=== PATIENT | female | born 1980 | race Caucasian/White ===

== ENCOUNTER 2019-04-23 14:38 | Emergency (ER) | payer SELFPAY ==
[~2019-04-23] VITALS: Ht 165.1 cm; Wt 74.5 kg
[2019-04-23 14:42] VITALS: BP 143/84; PULSE 87; TEMP 98.3
[2019-04-23] MEDS ORDERED: CILOXAN 5 ML5 ML OD (15:29)
== END 2019-04-23 15:42 | disposition home or self-care (01) ==
LOC: COL.ER 14:38
DX: T26.01XA Burn of right eyelid and periocular area, initial encounter (principal); T20.06XA Burn of unspecified degree of forehead and cheek, initial encounter; M06.9 Rheumatoid arthritis, unspecified; X19.XXXA Contact with other heat and hot substances, initial encounter

== ENCOUNTER → 2019-12-09 | Outpatient (CLI) | payer BC ==
[~2019-12-09] MED LIST: CILOXAN 5 ML5 ML OD
== END ==
LOC: BHSO 10:55
DX: F41.1 Generalized anxiety disorder (principal)

== ENCOUNTER → 2019-12-28 | Outpatient (CLI) | payer BC | LOC: BHSO 12:54 | DX: F41.1 Generalized anxiety disorder (principal) ==

== ENCOUNTER → 2020-01-11 | Outpatient (CLI) | payer BC | LOC: BHSO 13:02 | DX: F41.1 Generalized anxiety disorder (principal) ==

== ENCOUNTER → 2020-01-24 | Outpatient (CLI) | payer BC | LOC: BHSO 11:01 | DX: F33.0 Major depressive disorder, recurrent, mild (principal) ==

== ENCOUNTER → 2020-01-31 | Outpatient (CLI) | payer BC | LOC: BHSO 10:00 | DX: F41.1 Generalized anxiety disorder (principal) ==

== ENCOUNTER → 2020-02-11 | Outpatient (CLI) | payer BC | LOC: BHSO 10:06 | DX: F41.1 Generalized anxiety disorder (principal) ==

== ENCOUNTER → 2020-02-21 | Outpatient (CLI) | payer BC | LOC: BHSO 13:04 | DX: F41.1 Generalized anxiety disorder (principal) ==

== ENCOUNTER → 2020-03-20 | Outpatient (CLI) | payer BC | LOC: BHSO 12:59 | DX: F41.1 Generalized anxiety disorder (principal) ==